=== PATIENT | female | born 2000 | race Caucasian/White ===

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

== ENCOUNTER 2022-04-18 16:42 | Emergency (ER) | payer MEDICAID, SELFPAY ==
--- NOTE | ~2022-04-18 | XR_ITS ---
EXAMINATION: XR CHEST CLINICAL INFORMATION: Cough and shortness of breath COMPARISON: 11/12/2007 TECHNIQUE: Frontal view of the chest was obtained. FINDINGS: No significant abnormality is noted involving the heart, lungs, mediastinum, bony thorax or soft tissues. XR/XR chest 1V IMPRESSION: Unremarkable examination.
[2022-04-18 17:32] VITALS: PULSE 84; RESP 18; TEMP 36.9; O2SAT 98; BMI 32.5
[2022-04-18 17:57] LABS: Strep A Nucleic Acid Negative (Negative)
[2022-04-18 18:05] LABS: COVID-19 Test Negative (Negative)
--- NOTE | 2022-04-18 19:22 | ED_ITS ---
HPI - URI/Sore Throat General Chief Complaint: Upper Respiratory Symptoms Stated Complaint: coughing/chest pains Time Seen by Provider: 04/18/22 19:22 Source: patient Mode of arrival: ambulatory Limitations: no limitations History of Present Illness HPI Narrative: 21 y/o female with no significant medical history presents to the ER for evaluation URI symptoms for the last 2 days. She reports a hacking cough produ ctive of white phelgm that kept her up several hours last night. She has a sore throat, nasal congestion, body aches, and a hoarse voice. Her sister recently had a viral sickness with similar symptoms. She took a COVID test at home and was negative. MD elicited complaint: fever, cough, sore throat, rhinorrhea and nasal congestion Onset (ago): day(s) (2) Consistency: progressively worsening Severity: moderate Description of mucous: clear and watery Able to tolerate fluids by mouth: Yes Exacerbating factors: supine positioning Relieving factors: OTC cold medicine Context: sick contacts Associated symptoms: chills, myalgias, sore throat, cough and chest pain Treatments prior to arrival: none Related Data Previous Rx's Medication Instructions Recorded clindamycin HCl 300 mg capsule 300 mg PO Q6H 7 days #28 caps 12/10/20 benzonatate 100 mg capsule 100 mg PO TID PRN cough #20 caps 04/18/22 hydrocodone-homatropine 5 mg-1.5 5 ml PO Q6H PRN cough #60 mL 04/18/22 mg/5 mL (5 mL) oral syrup (Hycodan) Allergies Allergy/AdvReac Type Severity Reaction Status Date / Time No Known Allergies Allergy Verified 04/18/22 17:32 Review of Systems Review of Systems: Constitutional: + Fever, No Chills ENT/Mouth: + sore throat, No Rhinorrhea, No Swallowing Difficulty Eyes: No Eye Pain, No Swelling, No Redness Cardiovascular: No Chest Pain, No SOB Respiratory: + Cough, + Sputum, No Wheezing, No dyspnea Gastrointestinal: No Nausea, No Vomiting, No Diarrhea, No abdominal Pain Musculoskeletal: No joint pain, + Myalgias Skin: No Skin Lesions, No rash Neuro: No Weakness, No Numbness, No Dizziness, + Headache Heme/Lymph: No Bruising, No Lymphadenopathy PMFSH Past Medical History Medical History (Updated 04/18/22 @ 19:52 by RANDELL Isaac) Patient denies medical problems Social History Social History Advance Directives: No Advance Directives Information Provided: No Physical Exam Vital Signs: Vital Signs: Last Vital Signs Temp 98.4 F 04/18/22 17:32 Pulse 84 04/18/22 17:32 Resp 18 04/18/22 17:32 Pulse Ox 98 04/18/22 17:32 O2 Del Method 04/18/22 17:32 BMI result Body Mass Index 32.5 Appearance: Alert. Oriented X3. No acute distress. Eyes: Pupils equal, round and reactive to light. ENT: Pharynx with moist mucus membranes. Mild generalized posterior oropharynx erythema without tonsillar swelling or exudate, uvula midline. Normal TMs bilaterally. Neck: Normal inspection. Neck supple. CVS: Normal heart rate and rhythm. Pulses normal. Respiratory: No respiratory distress. Breath sounds normal. Abdomen: Soft and nontender. +BS x4 Skin: Skin warm and dry. Normal skin color. Normal skin turgor. No rashes. Extremities: No lower extremity edema. Neuro: Oriented X 3. Grossly normal, nonfocal Course Course Course Narrative: 21 y/o female presenting to the ER with sore throat, cough, body aches, nasal congestion. COVID negative at home. VS nromal on arrival. Exam is unremarkable. Lungs are clear. CXR is negative. COVID is negative as well as Strep. Most likely viral URI. Will prescribe antitussive agents and have provide work note per request. Stable for d/c home with supprotive care. MDM - URI/Sore Throat Lab Data Labs: Lab Results 04/18/22 04/18/22 Range/Units 17:38 17:38 COVID-19 (NASH) Negative (Negative) COVID-19 Clin Com See Note S. pyogenes GrpA LISA Negative (Negative) Discharge Plan Discharge Clinical Impression: Viral infection Patient Disposition: Home, Self-Care Instructions: Viral Syndrome (ED) Additional Instructions: Your chest x-ray today was normal. You are negative for Strep throat and COVID-19. Your symptoms are most likely viral. Rest. Drink plenty of fluids. Take over the counter cold/flu medications as needed for your symptoms. Take Tylenol and/or Motrin as needed for fevers and body aches. Take the prescribed cough medications as directed. Use the syrup before bed to help you sleep. Follow up with your doctor as needed. If you develop new or worsening symptoms call 911 or come back to the ER for further evaluation. Prescriptions: New benzonatate 100 mg capsule 100 mg PO TID PRN (Reason: cough) Qty: 20 0RF hydrocodone-homatropine [Hycodan] 5-1.5 mg/5 mL (5 mL) syrup 5 ml PO Q6H PRN (Reason: cough) Qty: 60 0RF Rx Instructions: Partial Fill upon patient request. No Action clindamycin HCl 300 mg capsule 300 mg PO Q6H 7 Days Qty: 28 0RF Stand Alone Forms: Work/School Release Interventions: ED Discharge Assessment Last Done: 04/18/22 20:30 Discharge Date/Time: 04/18/22 20:31
--- NOTE | 2022-04-18 19:58 | MHC.CM.ED ---
Pt requesting to complete a HCP. HCP reviewed, completed and signed. Copies given. Uploaded into [employer] and [facility]. HCP#1/mother Francesca Carney ([phone]) & HCP#2/father Ady Pierson ([phone]). Pt to be discharged home.
== END 2022-04-18 20:31 | disposition home or self-care (01) ==
PROVIDERS: Emergency Provider Internal Medicine
DX: B34.9 Viral infection, unspecified (principal); Z20.822 Contact with and (suspected) exposure to COVID-19; J02.9 Acute pharyngitis, unspecified
CPT/HCPCS: 36415; 71045; 87635; 87651; 99282; 99283

== ENCOUNTER 2025-08-06 11:21 | Outpatient (REF) | payer MEDICAID, SELFPAY ==
[2025-08-06 14:15] LABS: MANUAL DIFF FLAG NO
[2025-08-06 14:20] LABS: Hematocrit 38.5 % (37.0-47.0); Hemoglobin 12.1 g/dl (12.0-16.0); Imm Gran Abs Auto 0.01 X10*3/uL (0.00-0.03); Imm Gran Pct Auto 0.1 % (0.0-0.4); Lymphocytes Absolute Auto 2.7 X10*3/uL (1.2-4.9); Mean Corpuscular HGB Conc 31.4 g/dl (31.0-35.0); Mean Corpuscular Hemoglobin 26.1 pg (27.0-33.0); Mean Corpuscular Volume 83.0 fL (80.0-98.0); NRBC Abs Auto 0.000 X10*3/uL (0.0-0.012); NRBC Pct Auto 0.0 /100WBC (0.0-0.2); Platelet Count 423 X10*3/uL (160-400); Red Blood Count 4.64 X10*6/uL (4.20-5.50); White Blood Count 9.6 X10*3/uL (4.8-10.8)
[2025-08-06 14:37] LABS: Alanine Aminotransferase 19 U/L (0-31); Albumin Level 4.3 g/dL (3.5-5.0); Alkaline Phosphatase 92 U/L (39-117); Anion Gap 11 (12-20); Aspartate Amino Transferase 27 U/L (5-31); Blood Urea Nitrogen 10 mg/dL (9-16); Calcium 9.4 mg/dL (8.4-10.2); Carbon Dioxide 22 mmol/L (22-29); Chloride 108 mmol/L (96-108); Cholesterol 159 mg/dL (<200); Estimated Glomerular Filt Rate > 60; HDL Cholesterol 54 mg/dL (>40); Potassium 4.3 mmol/L (3.3-5.1); Sodium 137 mmol/L (135-145); Total Protein 7.8 g/dL (6.5-8.0); Triglycerides 54 mg/dL (<150)
[2025-08-06 16:20] LABS: Bacterial Vaginosis PCR NEGATIVE (Negative); Candida Group PCR NOT DETECTED (Not Detect); Candida glab krusei PCR NOT DETECTED (Not Detect); Trichomonas vaginalis PCR NOT DETECTED (Not Detect)
[2025-08-06 16:51] LABS: CT PCR NOT DETECTED (Not Detect.); NG PCR NOT DETECTED (Not Detect.)
== END 2025-08-06 11:22 | disposition home or self-care (01) ==
LOC: HO.CHCLDS 11:21
PROVIDERS: Visit Provider Pediatrics
DX: Z00.00 Encounter for general adult medical examination without abnormal findings (principal); Z20.2 Contact with and (suspected) exposure to infections with a predominantly sexual mode of transmission
CPT/HCPCS: 36415; 80048; 80061; 80076; 81515; 82306; 84443; 85025; 87491; 87591

== ENCOUNTER 2025-08-09 07:00 | Outpatient (REF) | payer MEDICAID, SELFPAY ==
--- OUTSIDE RECORDS SUMMARY | 2025-08-16 13:35 | XMS_ITS | Encounter Summary ---
Author Organization [employer] Address [address] [place] [address] Care Team Providers Care Mothers Helper Name Role Phone Elizabeth Damon MD Primary Care Provider [phone] Encounter Details Date Type Department Care Team ([facility] st Contact Info) Description 08/02/2025 Orders Only [facility] CH[facility] MED & PEDS [address] [place], [place] [phone] Elizabeth Damon MD [address] [place] [address] Social History Tobacco Use Types Packs/Day Years Used Date Smoking Tobacco: Never Assessed Comments Unknown Sex and Gender Information Value Date Recorded Sex Assigned at Female 07/23/2022 10:17 AM EDT Legal Sex Female 10:17 AM EDT Gender Identity Agender 07/30/2025 11:18 AM EST Sexual Orientation Bisexual 07/30/2025 11 :18 AM EST documented as of this encounter Plan of Treatment Not on file documented as of this encounter Procedures Procedure Name Priority Date/Time Associated Diagnosis Comments HPV DNA, LOW/HIGH RISK Routine 08/02/2025 11:10 AM EST documented in this encounter Results * HPV DNA, Low/High Risk (08/02/2025 11:10 AM EST) HPV High Risk Negative Negative [facility] HPV Genotype 16 Negative Negative [facility] HPV Genotype 18 Negative Negative [facility] Comment:HPV testing performe d at [facility] (CLIA#[id number]), [address] [place] [address].Testing for HPV was performed using the [employer]AN 6800system. The presence of HPV in the female genital tract isassociated with a number of diseases, including cervicalcarcinoma. The HPV DNA high risk pool tests for HPV 31, 33,35, 39, 45, 51, 52, 56, 58, 59, 66 and 68. The testing forHPV 16 and 18 genotypes has also been performed. A positiveresult indicates detection of nucleic acid sequences fromone or more subtypes, whereas a negative result indicatessuch sequences were not detected. 08/02/2025 11:1 0 AM EST 08/09/2025 7:00 AM EST us Elizabeth Damon MD LAB BLOOD ORDERABLES Final Re sult [facility] [address] [place] [address] [phone] documented in this encounter Visit Diagnoses Not on filedocumented in this encounter Care Teams Mothers Helper Relationship Specialty Start Date End Date Elizabeth Damon MD [address] [place] [address] PCP - General Internal Medicine 11/04/23 documented as of this encounter
--- OUTSIDE RECORDS SUMMARY | 2025-08-16 13:35 | XMS_ITS | Encounter Summary ---
Author Organization [employer] Address [address] [place] [address] Care Team Providers Care Saturator Tender Name Role Phone Elizabeth Damon MD Primary Care Provider [phone] Encounter Details Date Type Department Care Team ([facility] st Contact Info) Description 08/07/2025 Results Follow-Up [facility] CHC MED & PEDS [address] [place], [place] [phone] Elizabeth Damon MD [address] [place] [address] Basic Metabolic Panel, Fasting, CBC auto differential, Lipid Panel, Standard, Additional followed-up results: 5 Social History Tobacco Use Types Packs/Day Years Used Date Smoking Tobacco: Never Passive Smoke Exposure: Never Smokeless Tobacco: Never Comments Unknown Sex and Gender Information Value Date Recorded Sex Assigned at Female 07/23/2022 10:17 AM EDT Legal Sex Female 10:17 AM EDT Gender Identity Agender 07/30/2025 11:18 AM EST Sexual Orientation Bisexual 07/30/2025 11 :18 AM EST documented as of this encounter Plan of Treatment Not on file documented as of this encounter Visit Diagnoses Not on filedocumented in this encounter Care Teams Saturator Tender Relationship Specialty Start Date End Date Elizabeth Damon MD [address] [place] [address] PCP - General Internal Medicine 11/04/23 documented as of this encounter
--- OUTSIDE RECORDS SUMMARY | 2025-08-16 13:35 | XMS_ITS | Clinical Summary ---
Author Organization [employer] Address [address] [place] [address] Care Team Providers Care Director Franchise Sales Name Role Phone Elizabeth Damon MD Primary Care Provider [phone] Allergies No known active allergies Medications betamethasone dipropionate (Diprosone) 0.05 % ointment Apply topically every 12 (twelve) hours. 021 Active triamcinolone (Kenalog) 0.1 % cream Apply topically 2 times daily. 45 g 3 025 Active Diclofenac Sodium 1 % gel Apply to affected area of lower back daily prn pain 100 g 3 025 Active ergocalciferol (Vitamin D2) 1.25 MG (73938 UT) capsule Take 1 capsule (1.25 mg) by mouth 1 (one) time per week. 15 capsule 025 Active triamcinolone (Kenalog) 0.1 % cream apply topically to entire body BID as directed. Mix with moisturizing cream 022 2024 Discontinued(R eorder (will not trigger notification to Pharmacy)) Active Problems Problem Noted Date Diagnosed Date Atopic dermatitis 08/06/2025 Class 2 obesity 08/06/2025 Acute back pain 01/21/2025 Overview (08/06/2025): Worsening lower back pain. Encounters Date Type Department Care Team Description 08/07/2025 Results Follow-Up [facility] [address] [place] [address] Elizabeth Damon MD Basic Metabolic Panel, Fasting, CBC auto differential, Lipid Panel, Standard, Additional followed-up results: 5 08/07/2025 Orders Only [facility] [address] [place] [address] Elizabeth Damon MD 08/06/2025 10:45 AM EST Office Visit [facility] [address] [place] [address] Elizabeth Damon MD Routine general medical examination at a health care facility (Primary Dx); Encounter for immunization; Atopic dermatitis, unspecified type; Class 2 obesity; Acute right-sided low back pain without sciatica; Dietary counseling; Exercise counseling 08/06/2025 Travel 08/05/2025 Telephone [facility] [address] [place] [address] Elizabeth Damon MD Chat Prep 08/05/2025 Telephone [facility] [address] [place] [address] Elizabeth Damon MD INSURANCE 08/02/2025 Orders Only [facility] [address] [place] [address] Elizabeth Damon MD 07/30/2025 Travel 07/30/2025 Patient Outreach [facility] [address] [place], [place] [phone] Elizabeth Damon MD Pre-visit Planning (LVM) from Last 3 Months Immunizations Immunization Administration Dates Next Due DTaP 12/31/2007, 4,01/28/2003,12/03,2002 HPV 9-Valent 12/07/2020 HPV, Quadrivalent 08/30/2014 Hep A, ped/adol, 2 dose 05/15/2017,08/30/2014 Hep B, Adolescent or Pediatric 04/28/2003,2001,2002 Hib (HbOC) 11/01/2003, 3,2002,10/05 IPV 12/31/2007, 3,2002,10/05 Influenza injectable quadriv alent preservative free 12/07/2020 Influenza, IIV3, injectable 07/26/2009,1 ,08/14/2005,05/31,08/01/2004 MMR 12/31/2007,08/03/2003,08/03/2003 Meningococcal MCV4P ACYW-135 08/12/2019,08/30/20 14 Pneumococcal Conjugate PCV 7 11/01/2003, 01/28/2003,2002,10/05 Tdap 08/06/2025,08/30/2014 Varicella 12/31/2007,08/03/2003 Social History Tobacco Use Types Packs/Day Years Used Date Smoking Tobacco: Never Passive Smoke Exposure: Never Smokeless Tobacco: Never Tobacco Cessation:Counseling Given: Not Answered Comments Unknown Sex and Gender Information Value Date Recorded Sex Assigned at Female 07/23/2022 10:17 AM EDT Legal Sex Female 10:17 AM EDT Gender Identity Agender 07/30/2025 11:18 AM EST Sexual Orientation Bisexual 07/30/2025 11 :18 AM EST Last Filed Vital Signs Vital Sign Reading Time Taken Comments Blood Pressure 106/64 08/06/2025 10:39 AM EST Pulse 76 08/06/2025 10:39 AM EST Temperature 36.4 C (97.6 F) 08/06/2025 10:39 AM EST Respiratory Rate 16 08/06/2025 10:39 AM EST Oxygen Saturation 97% 01/02/2023 9:32 AM EDT Inhaled Oxygen Concentration - - Weight 88.5 kg (195 lb) 08/06/2025 10:39 AM EST Height 158.8 cm (5' 2.5 ) 08/06/2025 10:39 AM ES T Body Mass Index 35.1 08/06/2025 10:39 AM EST Plan of Treatment Health Maintenance Due Date Last Done Comments Depression Screening 2002 HIV Screening 2002 SDOH Screening 2002 Hepatitis B Vaccines (3 of 3 - 3-dose series) 06/23/2003 04/28/2003, 2002, 2002 Alcohol/Substance Use Screening 2014 Family Planning (PISQ) 2017 Meningococcal B Vaccine (1 of 2 - Standard) 2018 Hepatitis C Screening 2020 COVID-19 Vaccine ( season) 2025 Influenza Vaccine (#1) 2025 , 07/26/2009, 07/02/2006, Additional history exists Disability Screening 07/30/2026 07/30/2025 Chlamydia and Gonorrhea Screening 08/06/2026 08/06/2025 Tobacco Screening 08/06/2026 08/06/2025 Pap Smear 08/06/2028 08/06/2025 DTaP/Tdap/Td Vaccines (8 - Td or Tdap) 08/06/2035 08/06/2025, 08/30/2014, 12/31/2007, Additional history exists Zoster Vaccines (1 of 2) 2052 RSV Patients and Patients Aged 60 years or older (1 - 1-dose 75+ series) 2077 HIB Vaccines Completed 11/01/2003, 04/2003, 2002, Additional history exists Pneumococcal Vaccine: Pediatrics (0 to 5 Years) and At-Risk Patients (6 to 49) Years Aged Out 11/01/2003, 01/28/2003, 2002, Additional history exists No longer eligible based on patient's age to complete this topic IPV Vaccines Completed 12/31/2007, 02/2003, 2002, Additional history exists Hepatitis A Vaccines Completed 05/15/2017, 08/30/20 14 Meningococcal Vaccine Completed 08/12/2019, 014 HPV Vaccines Completed 12/07/2020, 08/30/2014 RSV under 20 months Aged Out No longe r eligible based on patient's age to complete this topic Rotavirus Vaccines Aged Out No longer eligible based on patient's age to complete this topic Procedures Procedure Name Priority Date/Time Associated Diagnosis Comments HEPATIC FUNCTION PANEL Routine 08/06/2025 11:24 AM EST Routine general medical examination at a health care facility VITAMIN D,25-OH,TOTAL,IA Routine 08/06/2025 11:24 AM EST Routine general medical examination at a health care facility TSH W/REFLEX TO FT4 Routine 08/06/2025 1 1:24 AM EST Routine general medical examination at a health care facility LIPID PANEL, STANDARD Routine 08/06/2025 11:24 AM EST Routine general medical examination at a [facility] care facility CBC WITH AUTO DIFFERENTIAL Routine 08/06/2025 11:24 AM EST Routine general medical examination at a [facility] facility BASIC METABOLIC PANEL, FASTING Routine 08/06/2025 11:24 AM EST Routine general medical examination at [facility] facility PAP SMEAR Routine 08/06/2025 11:10 AM EST Routine general medical examination at [facility] facility CHLAMYDIA/N. GONORRHOEAE RNA, TMA, UROGENITAL Routine 08/06/2025 11:10 AM EST Routine general medical examination at [facility] facility BACTERIAL VAGINOSIS PANEL Routine 08/06/2025 11:10 AM EST Routine general medical examination at a [facility] facility HPV DNA, LOW/HIGH RISK Routine 08/02/2025 11:10 AM EST from Last 3 Months Results * (ABNORMAL) Basic Metabolic Panel, Fasting (08/06/2025 11:24 AM EST) Sodium 137 135 - 145 mmol/L [facility] Potassium 4.3 3.3 - 5.1 mmol/L [facility] Chloride 108 96 - 108 mmol/L [facility] Carbon Dioxide 22 22 - 29 mmol/L [facility] Anion Gap 11(L) 12 - 20 [facility] Urea Nitrogen (BUN) 10 9 - 16 mg/dL [facility] Creatinine, Serum 0.61 0.5 - 1.4 mg/dL [facility] Estimated Glomerular Filt Rate >60 [facility] Comment:Chronic Kidney Disea se: Estimated GFR < 60 mL/min/1.98y5Iholql Kidney Disease: Estimated GFR < 15 mL/min/1.73m2 Glucose Fasting 89 60 - 99 mg/dL [facility] Calcium 9.4 8.4 - 10.2 mg/dL [facility] Blood Venous blood specimen / Unknown 08/06/2025 11:24 AM EST 08/06/2025 2:08 PM EST Elizabeth Damon MD LAB BLOOD ORDERABLES Final Re sult Performing Organization Address City/[facility]/ZIP Co de Phone Number [facility] [address] [place] [phone] * (ABNORMAL) Vitamin D, 25-Hydroxy, Total, Immunoassay (08/06/2025 11:24 AM EST) Vitamin D 25-OH Total 9.9(L) >30 ng/mL [facility] Comment: Health Based Reference Values*< 20 ng/mL Zexkxynix03-16 ng/mL Insufficient> 30 ng/mL Sufficient*Jim NOBLES. N Engl J Med. 2007;357:266-280There is no well-established upper level of normal vitamin Dlevels. Some laboratories use 50 ng/mL as an upper limit ofnormal. However, toxicity is patient-dependent and may occurat any level. Careful correlation with the patient'spresentation is necessary and, if there is concern forvitamin D toxicity, treatment should be consideredirrespective of the serum level.Care must be taken in interpreting Vitamin D results fromdifferent laboratories and methodologies. Published datademonstrated that results from patients undergoinghemodialysis may show a negative bias when tested withvarious automated 25-OH vitamin D assays when compared toLC-MS/MS.When testing samples from patients whose predominant form ofVitamin D is Vitamin D2, such as patients receiving VitaminD2 supplementation, results that are subtherapeutic shouldbe confirmed with another method such as LC-MS/MS. Blood Venous blood specimen / Unknown 08/06/2025 11:24 AM EST 08/06/2025 2:08 PM EST Elizabeth Damon MD LAB BLOOD ORDERABLES Final Re sult Performing Organization Address [facility]/ZIP Co de Phone Number [facility] [address] [place] [address] [phone] * TSH W/Reflex to FT4 (08/06/2025 11:24 AM EST) TSH reflex Free T4 0.61 0.32 - 4.0 uIU/mL [facility] Blood Venous blood specimen / Unknown 08/06/2025 11:24 AM EST 08/06/2025 2:08 PM EST us Elizabeth Damon MD LAB BLOOD ORDERABLES Final Re sult [facility] [address] [place] [phone] * (ABNORMAL) CBC auto differential (08/06/2025 11:24 AM EST) Pathologist [facility] White Blood Count 9.6 4.8 - 10.8 X10*3/uL [facility] Red Blood Count 4.64 4.20 - 5.50 X10*6/uL [facility] Hemoglobin 12.1 12.0 - 16.0 g/dl [facility] Hematocrit 38.5 37.0 - 47.0 % [facility] Mean Corpuscular Volume 83.0 80.0 - 98.0 fL [facility] Mean Corpuscular Hemoglobin 26.1(L) 27.0 - 33.0 pg [facility] Mean Corpuscular HGB Conc 31.4 31.0 - 35.0 g/dl [facility] Red Cell Distribution Width 14.8 11.0 - 16.0 % [facility] Platelet Count 423(H) 160 - 400 X10*3/uL [facility] Mean Platelet Volume 9.5 9.4 - 12.3 fL [facility] Neutrophils Percent Auto 64.5 45 - 73 % [facility] Imm Gran Pct Auto 0.1 0.0 - 0.4 % [facility] Lymphocytes Percent Auto 28.4 20 - 40 % [facility] Monocytes Percent Auto 6.0 2 - 11 % [facility] Eosinophils Percent Auto 0.7 0 - 4 % [facility] Basophils Percent Auto 0.3 0 - 2 % [facility] NRBC Pct Auto 0.0 0.0 - 0.2 /100WBC [facility] Neutrophils Absolute Auto 6.2 2.0 - 8.3 x10*3/uL [facility] Imm Gran Abs Auto 0.01 0.00 - 0.03 X10*3/uL [facility] Lymphocytes Absolute Auto 2.7 1.2 - 4.9 X10*3/uL [facility] Monocytes Absolute Auto 0.6 0.1 - 1.2 X10*3/uL [facility] Eosinophils Absolute Auto 0.1 0.0 - 0.4 X10*3/uL [facility] Basophils Absolute Auto 0.0 0.0 - 0.2 X10*3/uL [facility] NRBC Abs Auto 0.000 0.0 - 0.012 X10*3/uL [facility] Blood Venous blood specimen / Unknown 08/06/2025 11:24 AM EST 08/06/2025 2:08 PM EST us Elizabeth Damon MD LAB BLOOD ORDERABLES Final Re sult [facility] [address], [place] [phone] * Hepatic Function Panel (08/06/2025 11:24 AM EST) Bilirubin, Total 0.2 0.0 - 1.0 mg/dL [facility] Bilirubin, Direct <0.2 0.0 - 0.5 mg/dL [facility] Aspartate Amino Transferase 27 5 - 31 U/L [facility] Alanine Aminotransferase 19 0 - 31 U/L [facility] Total Protein 7.8 6.5 - 8.0 g/dL [facility] Albumin Level 4.3 3.5 - 5.0 g/dL [facility] Alkaline Phosphatase 92 39 - 117 U/L [facility] Blood Venous blood specimen / Unknown 08/06/2025 11:24 AM EST 08/06/2025 2:08 PM EST Elizabeth Damon MD LAB BLOOD ORDERABLES Final Re sult Performing Organization Address City/[facility]/ZIP Co de Phone Number [facility] [address] [place] [address] [phone] * Lipid Panel, Standard (08/06/2025 11:24 AM EST) Triglycerides 54 <150 mg/dL [facility] Comment:Desirable Triglyceri de: less than 150 mg/dLBorderline High Triglyceride 150-199 mg/dLHigh Triglyceride: 200-499 mg/dLVery High Triglyceride: greater than or equal to 5OO mg/dL Cholesterol 159 <200 mg/dL [facility] Comment:Desirable Cholestero l: less than 200 mg/dLBorderline High Cholesterol: 200-239 mg/dLHigh Cholesterol: greater than 239 mg/dL LDL Cholesterol Calculated 95 <100 mg/dL [facility] Comment:Desirable LDL: less than 100 mg/dLNear Optimal/Above Optimal LDL: 110- 129 mg/dLBorderline High LDL: 130-159 mg/dLHigh LDL: 160-189 mg/dLVery High LDL: greater than or equal to 190 mg/dL HDL Cholesterol 54 >40 mg/dL [facility] Comment:Desirable HDL: great er than 40 mg/dL Note: This HDL assay may give artificially low results in patients with liver disease. Blood Venous blood specimen / Unknown 08/06/2025 11:24 AM EST 08/06/2025 2:08 PM EST us Elizabeth Damon MD LAB BLOOD ORDERABLES Final Re sult Performing Organization Address City/[facility]/ZIP Co de Phone Number [facility] [address] [place] [address] [phone] * Bacterial Vaginosis Panel (08/06/2025 11:10 AM EST) TRICHOMONAS VAGINALIS DETECTION BY PCR NOT DETECTED Not Detect [facility] BACTERIAL VAGINOSIS DETECTION BY PCR NEGATIVE Negative [facility] Comment:The BV organism targ ets of the Xpert Xpress MVP test can becommensal in women; Xpert Xpress MVP positive results forbacterial vaginosis should be considered in conjunction withother clinical and patient information to determine thedisease status. Organisms that are not detected by the XpertXpress MVP test have also been reported to be associatedwith BV and aerobic vaginitis.The Xpert Xpress MVP test performance has not been evaluatedin patients under the age of 14. TIFFANY GROUP DETECTION BY PCR NOT DETECTED Not Detect [facility] Tiffany glab krusei PCR NOT DETECTED Not Detect [facility] Swab Vaginal structure / Unknown 08/06/2025 11:10 AM EST 08/06/2025 2:18 PM EST us Elizabeth Damon MD LAB MICROBIOLOGY - GENERAL OR DERABLES Final Result [facility] [address] [place] [phone] * Chlamydia/N. Gonorrhoeae RNA, TMA, Vaginal (08/06/2025 11:10 AM EST) CT PCR NOT DETECTED Not Detect. [facility] Comment:A not detected test result does not exclude the possibilityof infection because test results can be affected byimproper specimen collection, concurrent antibiotic therapy,or the number of organisms in the specimen which may bebelow the sensitivity of the test. As with many diagnostictests, results from the Xpert CT/NG assay should beinterpreted in conjunction with other laboratory andclinical data available to the clinician.Xpert CT/NG performance has not been evaluated in patientsless than 14 years of age. The assay should not be used forthe evaluationof suspected sexual abuse or for other medico-legalindications. Additional testing is recommended in anycircumstance when false positive or false negative resultscould lead to adverse medical, social or psychologicalconsequences. NG PCR NOT DETECTED Not Detect. [facility] Comment:A not detected test result does not exclude the possibilityof infection because test results can be affected byimproper specimen collection, concurrent antibiotic therapy,or the number of organisms in the specimen which may bebelow the sensitivity of the test. As with many diagnostictests, results from the Xpert CT/NG assay should beinterpreted in conjunction with other laboratory andclinical data available to the clinician.Xpert CT/NG performance has not been evaluated in patientsless than 14 years of age. The assay should not be used forthe evaluationof suspected sexual abuse or for other medico-legalindications. Additional testing is recommended in anycircumstance when false positive or false negative resultscould lead to adverse medical, social or psychologicalconsequences. Swab Vaginal structure / Unknown 08/06/2025 11:10 AM EST 08/06/2025 2:18 PM EST Elizabeth Damon MD LAB MICROBIOLOGY - GENERAL OR DERABLES Final Result [facility] [address] [place] [phone] * Pap Smear (08/06/2025 11:10 AM EST) Swab Cervical swab / Unknown 08/06/2025 11:10 AM EST 08/09/2025 7:00 AM EST Narrative [facility] - 08/16/2025 11:46 AM EST ----- ------- Name: Logan Pierson Age/Sex: 25/F : 2000 Unit#: [id number] Attend Dr: Elizabeth Damon MD Re08/09/25 Status: REG REF Location: HO.LNP Disch: ----- ------- SPEC : [id number] RECD: 08/09/25 STATUS: HEATH SOLORIO NUM: [id number] SARAH: 08/06/[address] [facility] [address]: Elizabeth Damon MD ENTERED: 08/09/25 SP TYPE: Pap Smr OTHR DR: ORDERED: Pap Smear, PAP path review Interpretation General Category: Epithelial cell abnormality. Adequacy: No endocervical cells seen. Interpretation: Atypical squamous cells of undetermined significance. HPV High Risk: Negative HPV Genotyping 16: Negative HPV Genotyping 18: Negative Clinical Information LMP: 06/28/25 Previous PAP test: First pap Other surgery: Other history: Material Received ThinPrep-Cervical ----- ------- Signed (signature on file) Marbin Myers MD 08/16/25 1146 ----- ------- END OF REPORT us Elizabeth Damon MD LAB CYTOLOGY ORDERABLES Final Result Performing Organization Address [facility]/ZIP Co de Phone Number [facility] [address] [place] [address] [phone] * HPV DNA, Low/High Risk (08/02/2025 11:10 AM EST) HPV High Risk Negative Negative [facility] HPV Genotype 16 Negative Negative [facility] HPV Genotype 18 Negative Negative [facility] Comment:HPV testing performe d at [facility] (CLIA#[id number]), [address] [place] [id number].Testing for HPV was performed using the Eventable SUSAN 6800system. The presence of HPV in [...] 0 AM EST 08/09/2025 7:00 AM EST Elizabeth Damon MD LAB BLOOD ORDERABLES Final Re sult Performing Organization Address [facility]/ZIP Co de Phone Number [facility] [address] [place] [address] [phone] from Last 3 Months Insurance [facility] Care Teams Director Franchise Sales Relationship Specialty Start Date End Date Elizabeth Damon MD [address] [place] [phone] PCP - General Internal Medicine 11/04/23
--- OUTSIDE RECORDS SUMMARY | 2025-08-16 13:36 | XMS_ITS | Encounter Summary ---
Author Organization [employer] Address [address] [place] [address] Care Team Providers Care Home Lighting Adviser Name Role Phone Patricia Tripathi NP Primary Care Provider Elizabeth Todd MD Primary Care Provider [phone] Encounter Details Date Type Department Care Team ([facility] Contact Info) Description 01/02/2023 Orders Only [facility] [address] [place] [address] Alma Duenas MD Social History Tobacco Use Types Packs/Day Years Used Date Smoking Tobacco: Never Assessed Comments Unknown Sex and Gender Information Value Date Recorded Sex Assigned at Female 07/23/2022 10:17 AM EDT Legal Sex Female 10:17 AM EDT Gender Identity Agender 07/30/2025 11:18 AM EST Sexual Orientation Bisexual 07/30/2025 11 :18 AM EST COVID-19 Exposure Response Date Recorded In the last 10 days, have yo u been in contact with someone who was confirmed or suspected to have Coronavirus/COVID-19? No / Unsure 01/02/2023 9:11 AM EDT documented as of this encounter Plan of Treatment Not on file documented as of this encounter Visit Diagnoses Not on filedocumented in this encounter Care Teams Home Lighting Adviser Relationship Specialty Start Date End Date Patricia Tripathi NP PCP - General Pediatrics 08/01/16 11/03/23 Elizabeth Damon MD [address] [place] [phone] PCP - General Internal Medicine 11/04/23 documented as of this encounter
== END 2025-08-09 07:01 | disposition home or self-care (01) ==
LOC: HO.LNP 07:00
PROVIDERS: Visit Provider Pediatrics
DX: Z11.51 Encounter for screening for human papillomavirus (HPV) (principal)
CPT/HCPCS: 36415; 80048; 80061; 80076; 81515; 82306; 84443; 85025; 87491; 87591; 87626; 88175